=== PATIENT | male | born 1930 | race African-American/Black ===

== ENCOUNTER 2017-10-02 15:21 | Observation (INO) | payer OTHER ==
[~2017-10-02] VITALS: Ht 180.3 cm; Wt 85.0 kg
[~2017-10-02 15:21] MED LIST: ACET325T11 PO; CAPT50TA PO; CARB0.5D16 EACH EYE; COUM3TAB PO; COUM6TAB PO; DILTSR120 PO; POTA10IN2 PO; PRAV10 PO; SYNT100T PO; TAMS5CAP PO
[2017-10-02 15:37] VITALS: BP 152/74; PULSE 78; TEMP 97.6; O2SAT 98
--- NOTE | 2017-10-02 16:15 | RADRPT ---
EXAM DATE/TIME: 10/02/2017 15:51 [facility] COMPARISON: No previous studies available for comparison. INDICATIONS : Syncope 2 hours ago while eating. MEDICAL HISTORY : None. SURGICAL HISTORY : None. ENCOUNTER: Initial ACUITY: 1 day PAIN SCORE: 0/10 LOCATION: Bilateral chest FINDINGS: A single view of the chest demonstrates the lungs to be symmetrically aerated without evidence of mas s, infiltrate or effusion. The cardiomediastinal contours are unremarkable. Osseous structures are intact. CONCLUSION: No acute disease. Edis Lowry MD on October 02, 2017 at 16:13 Board Certified Radiologist. This report was verified electronically.
[2017-10-02 16:27] VITALS: BP 142/83; PULSE 83; RESP 18; TEMP 97.8; O2SAT 98
[2017-10-02] MEDS ORDERED: SODIUM CHLORID 0.9% 500 ML INJ 500 ML IV ONE (16:30)
[2017-10-02 16:34] LABS: AUTOMATED NEUTROPHIL # 3.3 TH/MM3 (1.8-7.7); BASOPHIL % 0.7 % (0.0-2.0); EOSINOPHIL # 0.1 TH/MM3 (0-0.4); EOSINOPHIL % 2.7 % (0.0-4.0); HEMATOCRIT 42.4 % (39.0-51.0); HEMOGLOBIN 14.4 GM/DL (13.0-17.0); LYMPH % 18.8 % (9.0-44.0); LYMPHOCYTE # 0.9 TH/MM3 (1.0-4.8); MEAN CELL VOLUME 92.5 FL (80.0-100.0); MEAN CORPUSCULAR HEMOGLOBIN 31.5 PG (27.0-34.0); MONO % 10.1 % (0.0-8.0); MONOCYTE # 0.5 TH/MM3 (0-0.9); NEUT % 67.7 % (16.0-70.0); PLATELET COUNT 214 TH/MM3 (150-450); RED BLOOD COUNT 4.58 MIL/MM3 (4.50-5.90); RED CELL DISTRIBUTION WIDTH 14.1 % (11.6-17.2); WHITE BLOOD COUNT 4.9 TH/MM3 (4.0-11.0)
--- NOTE | 2017-10-02 16:41 | RADRPT ---
EXAM DATE/TIME: 10/02/2017 16:23 [facility] COMPARISON: CT BRAIN W/O CONTRAST, April 19, 2013, 22:03. INDICATIONS : Became unresposive for a few minutes, family observed. RADIATION DOSE: 45.78 CTDIvol (mGy) MEDICAL HISTORY : Cardiovascular disease. Hypertension. DVT SURGICAL HISTORY : None. ENCOUNTER: Initial ACUITY: 1 day PAIN SCALE: 0/10 LOCATION: cranial TECHNIQUE: Multiple contiguous axial images were obtained of the head. Using automated exposure control and adj ustment of the mA and/or kV according to patient size, radiation dose was kept as low as reasonably a chievable to obtain optimal diagnostic quality images. DICOM format image data is available electro nically for review and comparison. FINDINGS: CEREBRUM: The ventricles are normal for age. There is bilateral cortical atrophy. 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 No evidence of midline shift, mass lesion, hemorrhage or acute infarction. N o extra-axial fluid collections are seen. POSTERIOR FOSSA: The cerebellum and brainstem are intact. The 4th ventricle is midline. The cerebellopontine angle i s unremarkable. EXTRACRANIAL: The visualized portion of the orbits is intact. SKULL: The calvaria is intact. No evidence of skull fracture. CONCLUSION: 1. No acute intracranial hemorrhage. 2. Old infarct in the right occipital lobe. 3. Diffuse bilateral cortical atrophy. 4. Otherwise, no other new or significant changes are seen compared to the prior study. Edis Lowry MD on October 02, 2017 at 16:31 Board Certified Radiologist. This report was verified electronically.
[2017-10-02 16:44] LABS: INTERNATIONAL NORMALIZED RATIO 1.2 RATIO
[2017-10-02 16:46] VITALS: BP_SYST 145; BP_SYST 156; BP_SYST 160; BP_DIAS 76; BP_DIAS 78; BP_DIAS 82; RESP 18
[2017-10-02 16:49] LABS: ALT (GPT) 22 U/L (12-78)
[2017-10-02 17:11] LABS: ALBUMIN 3.6 GM/DL (3.4-5.0); ALKALINE PHOSPHATASE 81 U/L (45-117); AST (GOT) 26 U/L (15-37); BICARBONATE 27.5 MEQ/L (21.0-32.0); BLOOD UREA NITROGEN 19 MG/DL (7-18); CALCIUM 8.6 MG/DL (8.5-10.1); CHLORIDE 106 MEQ/L (98-107); CREATININE 1.13 MG/DL (0.60-1.30); GLOMERULAR FILTRATION RATE 75 ML/MIN (>89); GLUCOSE,RANDOM 115 MG/DL (74-106); MAGNESIUM 2.3 MG/DL (1.5-2.5); SODIUM (NA) 140 MEQ/L (136-145); TOTAL BILIRUBIN ADULT 0.6 MG/DL (0.2-1.0); TOTAL PROTEIN 7.3 GM/DL (6.4-8.2); TROPONIN I 0.02 NG/ML (0.02-0.05)
--- NOTE | 2017-10-02 17:29 | PD ---
Physical Exam Narrative I, Dr. Ashraf, have reviewed the advance practice practitioner's documentation and am in agreement, met with the patient face to face, made the diagnosis, and the medical decision making was done by me. *My assessment and Findings: Arrhythmia vs. ICH vs. Vasovagal syncope 86yo M with PMH of brain aneurysm here with episode of syncope. Pt was sitting down in front of his grandson and his grandson said he slumped over and was unresponsive for 10-15 minutes. Denies any fever, chest pain, sob, n/v, abdominal pain, focal weakness or numbness. Labs reviewed, no leukocytosis. H/ H normal. TSH normal. Troponin 0.02. CMP unremarkable. CXR negative. CT brain showed no acute intracranial hemorrhage. Old infarct in the right occipital lobe. No new changes. Pt has no complaints now. Will admit for syncope work up. Data Data Last Documented VS Vital Signs Date Time Temp Pulse Resp B/P (MAP) Pulse Ox O2 Delivery O2 Flow Rate FiO2 10/02/17 16:46 84 18 145/78 (100) 79 18 156/76 (102) 89 18 160/82 (108) 10/02/17 16:28 98 Room Air 10/02/17 16:27 97.8 Orders Orders Electrocardiogram (10/02/17 15:44) Complete Blood Count With Diff (10/02/17 15:44) Comprehensive Metabolic Panel (10/02/17 15:44) Ckmb (Isoenzyme) Profile (10/02/17 15:44) Troponin I (10/02/17 15:44) Prothrombin Time / Inr (Pt) (10/02/17 15:44) Act Partial Throm Time (Ptt) (10/02/17 15:44) Urinalysis - C+S If Indicated (10/02/17 15:44) Magnesium (Mg) (10/02/17 15:44) Thyroid Stimulating Hormone (10/02/17 15:44) Chest, Single Ap (10/02/17 15:44) Ct Brain W/O Iv Contrast(Rout) (10/02/17 15:44) Iv Access Insert/Monitor (10/02/17 15:44) Ecg Monitoring (10/02/17 15:44) Oximetry (10/02/17 15:44) Orthostatic Vital Signs (10/02/17 15:44) Sodium Chlorid 0.9% 500 Ml Inj (Ns 500 M (10/02/17 16:30) CKMB (10/02/17 16:19) CKMB% (10/02/17 16:19) Labs Laboratory Tests Test 10/02/17 16:19 White Blood Count 4.9 TH/MM3 Red Blood Count 4.58 MIL/MM3 Hemoglobin 14.4 GM/DL Hematocrit 42.4 % Mean Corpuscular Volume 92.5 FL Mean Corpuscular Hemoglobin 31.5 PG Mean Corpuscular Hemoglobin Concent 34.0 % Red Cell Distribution Width 14.1 % Platelet Count 214 TH/MM3 Mean Platelet Volume 8.0 FL Neutrophils (%) (Auto) 67.7 % Lymphocytes (%) (Auto) 18.8 % Monocytes (%) (Auto) 10.1 % Eosinophils (%) (Auto) 2.7 % Basophils (%) (Auto) 0.7 % Neutrophils # (Auto) 3.3 TH/MM3 Lymphocytes # (Auto) 0.9 TH/MM3 Monocytes # (Auto) 0.5 TH/MM3 Eosinophils # (Auto) 0.1 TH/MM3 Basophils # (Auto) 0.0 TH/MM3 CBC Comment DIFF FINAL Differential Comment Prothrombin Time 12.0 SEC Prothromb Time International Ratio 1.2 RATIO Activated Partial Thromboplast Time 25.6 SEC Blood Urea Nitrogen 19 MG/DL Creatinine 1.13 MG/DL Random Glucose 115 MG/DL Total Protein 7.3 GM/DL Albumin 3.6 GM/DL Calcium Level 8.6 MG/DL Magnesium Level 2.3 MG/DL Alkaline Phosphatase 81 U/L Aspartate Amino Transf (AST/SGOT) 26 U/L Alanine Aminotransferase (ALT/SGPT) 22 U/L Total Bilirubin 0.6 MG/DL Sodium Level 140 MEQ/L Potassium Level 4.9 MEQ/L Chloride Level 106 MEQ/L Carbon Dioxide Level 27.5 MEQ/L Anion Gap 7 MEQ/L Estimat Glomerular Filtration Rate 75 ML/MIN Total Creatine Kinase 140 U/L Creatine Kinase MB 3.3 NG/ML Troponin I 0.02 NG/ML Thyroid Stimulating Hormone 3rd Gen 3.180 uIU/ML MDM Supervised Visit with RAFAL: Yes Interpretation(s) EKG: NSR 83bpm. Normal axis. QTc 404ms. Diagnosis Primary Impression: Syncope Qualified Codes: R55 - Syncope and collapse Admitting Information Admitting Physician Requests: Observation Nishi Ashraf DO Oct 02, 2017 17:29
[2017-10-02] MEDS ORDERED: WARF-60 PO (17:31)
[2017-10-02] MEDS ORDERED: CARD120C4 PO (17:31)
[2017-10-02] MEDS ORDERED: TAMS0.4C4 PO ×2 (17:31→20:09)
[2017-10-02] MEDS ORDERED: PRAV10TA PO (17:31)
[2017-10-02] MEDS ORDERED: TYLE325T PO ×2 (17:31→20:09)
[2017-10-02] MEDS ORDERED: CAPT50TA PO (17:31)
[2017-10-02] MEDS ORDERED: LEVO150T7 PO (17:31)
[2017-10-02] MEDS ORDERED: POTA10CA PO (17:31)
[2017-10-02] MEDS ORDERED: SODIUM CHLOR 0.9% 1000 ML INJ 1,000 ML IV SCH (17:37)
[2017-10-02] MEDS ORDERED: LACTULOSE SYRUP 20 GM/30 ML CUP PO PRN (17:45)
[2017-10-02] MEDS ORDERED: ONDANSETRON HCL 4 MG/2 ML VIAL IVP PRN (17:45)
[2017-10-02] MEDS ORDERED: ACETAMINOPHEN 325 MG TAB PO PRN ×2 (17:45)
[2017-10-02] MEDS ORDERED: SENNOSIDES 8.6 MG TAB PO PRN (17:45)
[2017-10-02] MEDS ORDERED: MAGNESIUM HYDROXIDE SUSP 30 ML CUP PO PRN (17:45)
[2017-10-02] MEDS ORDERED: BISACODYL 10 MG SUPP RECTAL PRN (17:45)
[2017-10-02] MEDS ORDERED: SODIUM CHLORIDE 0.9% FLUSH 10 ML FLUSH IV FLUSH PRN ×2 (17:45)
[2017-10-02] MEDS ORDERED: NALOXONE HCL 0.4 MG/ML AMP IV PUSH PRN (17:45)
--- NOTE | 2017-10-02 17:54 | PD ---
HPI Chief Complaint: Syncope/Near-Syncope Time Seen by Provider: 15:39 Travel History International Travel<30 days: No Contact w/Intl Traveler<30days: No Traveled to known affect area: No History of Present Illness HPI 86-year-old male that presents to the ED for evaluation of syncopal episode. Patient has a history of apparently eating early dinner today with his family and per family he passed out for about 10-15 minutes. Unsure of time but by the time the EVAC showed and the patient was moved and he was found to be hypotensive but "he came back to it". Patient now voices no complaints. He denies any preleading symptoms. Per family he did not complain of anything before this happened. No CPR was done. Patient himself denies any medical history and states that he takes medications but he is not sure what he takes. Patient is somewhat of a poor historian. Patient denies any chest pain or shortness of breath. No urinary or bowel movement issues. Patient denies ever having anything like this before. Patient states that she's never been worked up for this before. He has no allergies to medication. Patient has no pain of any kind. No fevers chills or sweats. Patient was sitting when this happened. Per family no head injury. PFSH Past Medical History Cancer: No Cardiovascular Problems: Yes High Cholesterol: Yes Deep Vein Thrombosis: Yes Endocrine: Yes Genitourinary: No Hypertension: Yes Musculoskeletal: No Neurologic: Yes (HX OF CVA? PT UNSURE OF DIAGNOSIS/ brain anuersym in 2015, no surgery) Psychiatric: No Reproductive: No Respiratory: No Thyroid Disease: Yes ?: Not Past Surgical History Other Surgery: No Social History Alcohol Use: No Tobacco Use: No Substance Use: No Allergies-Medications (Allergen,Severity, Reaction): Coded Allergies: No Known Allergies (Unverified Allergy, Unknown, 10/02/17) Reported Meds & Prescriptions Reported Meds & Active Scripts Active Reported Tylenol (Acetaminophen) 325 Mg Tab 650 Mg PO Q6H PRN Warfarin 6 Mg Tab 6 Mg PO DAILY Tamsulosin (Tamsulosin HCl) 0.4 Mg Cap 0.4 Mg PO HS Pravastatin 10 Mg Tab 10 Mg PO DAILY Potassium Chloride ER (Potassium Chloride) 10 Meq Cap 10 Meq PO BID Levothyroxine (Levothyroxine Sodium) 150 Mcg Tab 150 Mcg PO DAILY Cardizem CD 24 HR (Diltiazem CD 24 HR) 120 Mg Caper 120 Mg PO DAILY Captopril 50 Mg Tab 50 Mg PO BIDAC Take 1 hour before meals. Review of Systems Except as stated in HPI: all other systems reviewed are Neg Physical Exam Narrative GENERAL: SKIN: Warm and dry. Patient has a scar on his chest that appears to be old and well-healed. His ordered some told the chest. Patient cannot really tell me how he got this but per patient she's had that his whole life HEAD: Atraumatic. Normocephalic. EYES: Pupils equal and round. No scleral icterus. No injection or drainage. ENT: No nasal bleeding or discharge. Mucous membranes pink and moist. Tongue is midline. No uvula deviation. NECK: Trachea midline. No JVD. CARDIOVASCULAR: Regular rate and rhythm. He reports no murmurs, S3, S4. RESPIRATORY: No accessory muscle use. Clear to auscultation. Breath sounds equal bilaterally. GASTROINTESTINAL: Abdomen soft, non-tender, nondistended. Hepatic and splenic margins not palpable. MUSCULOSKELETAL: Extremities without clubbing, cyanosis, or edema. No obvious deformities. Full range of motion of the upper and lower extremities bilaterally. 2+ pulses bilaterally. NEUROLOGICAL: Awake and alert. No obvious cranial nerve deficits. Motor grossly within normal limits. Five out of 5 muscle strength in the arms and legs. Normal speech. PSYCHIATRIC: Appropriate mood and affect; insight and judgment normal. Data Data Last Documented VS Vital Signs Date Time Temp Pulse Resp B/P (MAP) Pulse Ox O2 Delivery O2 Flow Rate FiO2 10/02/17 16:46 84 18 145/78 (100) 79 18 156/76 (102) 89 18 160/82 (108) 10/02/17 16:28 98 Room Air 10/02/17 16:27 97.8 Orders Orders Electrocardiogram (10/02/17 15:44) Complete Blood Count With Diff (10/02/17 15:44) Comprehensive Metabolic Panel (10/02/17 15:44) Ckmb (Isoenzyme) Profile (10/02/17 15:44) Troponin I (10/02/17 15:44) Prothrombin Time / Inr (Pt) (10/02/17 15:44) Act Partial Throm Time (Ptt) (10/02/17 15:44) Urinalysis - C+S If Indicated (10/02/17 15:44) Magnesium (Mg) (10/02/17 15:44) Thyroid Stimulating Hormone (10/02/17 15:44) Chest, Single Ap (10/02/17 15:44) Ct Brain W/O Iv Contrast(Rout) (10/02/17 15:44) Iv Access Insert/Monitor (10/02/17 15:44) Ecg Monitoring (10/02/17 15:44) Oximetry (10/02/17 15:44) Orthostatic Vital Signs (10/02/17 15:44) Sodium Chlorid 0.9% 500 Ml Inj (Ns 500 M (10/02/17 16:30) CKMB (10/02/17 16:19) CKMB% (10/02/17 16:19) Place In Observation (10/02/17 ) Vital Signs (Adult) Q4H (10/02/17 17:35) Bedside Glucose MELANIE.CSUGAR (10/02/17 17:35) Diet Heart Healthy (10/02/17 Dinner) Sodium Chlor 0.9% 1000 Ml Inj (Ns 1000 M (10/02/17 17:35) Sodium Chloride 0.9% Flush (Ns Flush) (10/02/17 17:45) Sodium Chloride 0.9% Flush (Ns Flush) (10/02/17 21:00) Acetaminophen (Tylenol) (10/02/17 17:45) Ondansetron Inj (Zofran Inj) (10/02/17 17:45) Basic Metabolic Panel (Bmp) (10/03/17 06:00) Complete Blood Count With Diff (10/03/17 06:00) Electrocardiogram (10/02/17 17:35) Electrocardiogram (10/02/17 23:35) Resp Oxygen Nelson C Titrat 1-4 L (10/02/17 ) Pt Request For Service (10/02/17 17:35) Case Management Consult (10/02/17 17:35) Enoxaparin Inj (Lovenox Inj) (10/02/17 18:00) Scd Bilateral/Knee High MELANIE.BID (10/02/17 17:35) Axel Bilateral/Knee High MELANIE.QSHIFT (10/02/17 17:35) Naloxone Inj (Narcan Inj) (10/02/17 17:45) Docusate Sodium-Senna (Kellee-Colace) (10/02/17 21:00) Magnesium Hydroxide Liq (Milk Of Magnesi (10/02/17 17:45) Sennosides (Senokot) (10/02/17 17:45) Bisacodyl Supp (Dulcolax Supp) (10/02/17 17:45) Lactulose Liq (Lactulose Liq) (10/02/17 17:45) Offline Cutter / Telemetry MELANIE.Q8H (10/02/17 17:37) Neuro Checks Q4H (10/02/17 17:37) Sodium Chlor 0.9% 1000 Ml Inj (Ns 1000 M (10/02/17 17:37) Sodium Chloride 0.9% Flush (Ns Flush) (10/02/17 17:45) Sodium Chloride 0.9% Flush (Ns Flush) (10/02/17 21:00) Echo 2d Comp With Doppler (10/02/17 ) Holter Monitor Recording (10/02/17 ) Eeg Study (10/02/17 ) Acetaminophen (Tylenol) (10/02/17 17:45) Captopril (Capoten) (10/03/17 07:00) Diltiazem Cd (Cardizem Cd) (10/03/17 09:00) Levothyroxine (Synthroid) (10/03/17 09:00) Potassium Chloride (Kcl) (10/02/17 21:00) Pravastatin (Pravachol) (10/03/17 09:00) Tamsulosin (Flomax) (10/02/17 21:00) Warfarin (Coumadin) (10/03/17 16:00) Prothrombin Time / Inr (Pt) (10/03/17 06:00) Prothrombin Time / Inr (Pt) (10/04/17 06:00) Prothrombin Time / Inr (Pt) (10/05/17 06:00) Prothrombin Time / Inr (Pt) (10/06/17 06:00) Prothrombin Time / Inr (Pt) (10/07/17 06:00) Warfarin Consult Pharmacy (Coumadin Cons (10/02/17 17:45) Enoxaparin Inj (Lovenox Inj) (10/02/17 17:45) Admit Order (Ed Use Only) (10/02/17 17:45) Warfarin (Coumadin) Pt Teach (Coumadin B (10/03/17 16:00) Labs Laboratory Tests Test 10/02/17 16:19 10/02/17 17:25 White Blood Count 4.9 TH/MM3 Red Blood Count 4.58 MIL/MM3 Hemoglobin 14.4 GM/DL Hematocrit 42.4 % Mean Corpuscular Volume 92.5 FL Mean Corpuscular Hemoglobin 31.5 PG Mean Corpuscular Hemoglobin Concent 34.0 % Red Cell Distribution Width 14.1 % Platelet Count 214 TH/MM3 Mean Platelet Volume 8.0 FL Neutrophils (%) (Auto) 67.7 % Lymphocytes (%) (Auto) 18.8 % Monocytes (%) (Auto) 10.1 % Eosinophils (%) (Auto) 2.7 % Basophils (%) (Auto) 0.7 % Neutrophils # (Auto) 3.3 TH/MM3 Lymphocytes # (Auto) 0.9 TH/MM3 Monocytes # (Auto) 0.5 TH/MM3 Eosinophils # (Auto) 0.1 TH/MM3 Basophils # (Auto) 0.0 TH/MM3 CBC Comment DIFF FINAL Differential Comment Prothrombin Time 12.0 SEC Prothromb Time International Ratio 1.2 RATIO Activated Partial Thromboplast Time 25.6 SEC Blood Urea Nitrogen 19 MG/DL Creatinine 1.13 MG/DL Random Glucose 115 MG/DL Total Protein 7.3 GM/DL Albumin 3.6 GM/DL Calcium Level 8.6 MG/DL Magnesium Level 2.3 MG/DL Alkaline Phosphatase 81 U/L Aspartate Amino Transf (AST/SGOT) 26 U/L Alanine Aminotransferase (ALT/SGPT) 22 U/L Total Bilirubin 0.6 MG/DL Sodium Level 140 MEQ/L Potassium Level 4.9 MEQ/L Chloride Level 106 MEQ/L Carbon Dioxide Level 27.5 MEQ/L Anion Gap 7 MEQ/L Estimat Glomerular Filtration Rate 75 ML/MIN Total Creatine Kinase 140 U/L Creatine Kinase MB 3.3 NG/ML Troponin I 0.02 NG/ML Thyroid Stimulating Hormone 3rd Gen 3.180 uIU/ML MDM Medical Decision Making Medical Screen Exam Complete: Yes Emergency Medical Condition: Yes Medical Record Reviewed: Yes Interpretation(s) Last Impressions Head CT 10/02/17 4560 Signed Impressions: Service Date/Time: Monday, October 02, 2017 16:23 - CONCLUSION: 1. No acute intracranial hemorrhage. 2. Old infarct in the right occipital lobe. 3. Diffuse bilateral cortical atrophy. 4. Otherwise, no other new or significant changes are seen compared to the prior study. Edis Lowry MD Chest X-Ray 10/02/17 1544 Signed Impressions: Service Date/Time: Monday, October 02, 2017 15:51 - CONCLUSION: No acute disease. Edis Lowry MD CBC & BMP Diagram 10/02/17 16:19 Total Protein 7.3, Albumin 3.6, Calcium Level 8.6, Magnesium Level 2.3, Alkaline Phosphatase 81, Aspartate Amino Transf (AST/SGOT) 26, Alanine Aminotransferase (ALT/SGPT) 22, Total Bilirubin 0.6 coags WNL troponin and CKMB negative EKG shows sinus rhythm with no sign of acute ischemia or arrythmia. Differential Diagnosis Syncope versus altered mental status versus cardiac syncope versus ACS versus stroke versus hypotension versus normal exam Narrative Course 86-year-old male that presents to the ED for evaluation of syncope. Patient was properly examined and was found to have signs and symptoms consistent with syncope but unclear source. Patient himself right now has no complaints. Patient himself is somewhat of a poor historian. He does have a history of DVTs as well as high cholesterol hypertension from her medical records. Unclear if he takes medications for this as he himself does not know what medications he takes. Labs and imaging were ordered. Labs and imaging were essentially unremarkable here. Patient has never been worked up for this in the past and has never been here for this. Do recommend evaluation for this. Family and patient agree with this. Dr. Ashraf evaluated the patient with me and agrees with plan. Case discussed with Dr. Redmond who agreed to admission for syncope. Diagnosis Primary Impression: Syncope Qualified Codes: R55 - Syncope and collapse Admitting Information Admitting Physician Requests: Rogelio Machuca Oct 02, 2017 17:54
[2017-10-02 17:57] LABS: BILIRUBIN, URINE NEG (NEG); BLOOD, URINE NEG (NEG); GLUCOSE,URINE NEG (NEG); HYALINE CAST, URINE 13 /lpf (RARE); KETONE, URINE NEG (NEG); MUCUS URINE FEW /lpf (OCC); NITRITE,URINE NEG (NEG); SQUAMOUS EPITHELIAL CELL URINE <1 /hpf (0-5); URINE COLOR YELLOW (YELLW/STRAW); URINE LEUKOCYTE ESTERASE NEG (NEG)
[2017-10-02] MEDS ORDERED: ENOXAPARIN SODIUM 40 MG/0.4 ML SYRINGE SQ SCH (18:00)
[2017-10-02] MEDS ORDERED: WARFARIN SOD 6 MG TAB PO ONE (18:30)
--- NOTE | 2017-10-02 19:10 | HHI.HP ---
[facility] Service [facility] Primary Care Physician Chelsie Newell MD Admission Diagnosis acute syncope Diagnoses: Chief Complaint: Syncope Travel History International Travel<30 Days: No Contact w/Intl Traveler <30 Da: No Traveled to Known Affected Are: No History of Present Illness The patient is a very pleasant 86-year-old male with past medical history of CVA with right-sided weakness, brain aneurysm, DVT, hypertension. The patient came for evaluation of episode of syncope witnessed today by his family. The patient was sitting down in front of his grandson at the table when he suddenly slumped over and was unresponsive for 10-15 minutes. He had his eyes open and staring. Patient doesn't have a recollection of what happened and by the time he came to the emergency room his baseline. Her family the patient has slurred speech afterwards. The patient denies any fever, chest pain, shortness of breath, nausea or vomiting. No abdominal pain. No new focal deficit or numbness. No change in vision. He has right-sided weakness at baseline. The patient as family says he is not taking anymore Coumadin however he was switched to paradox and currently he is not sure what medication he is taking for anticoagulation however he is sure he is not taking Coumadin anymore. Review of Systems ROS Limitations: Clinical Condition Except as stated in HPI: all other systems reviewed are Neg Past Family Social History Past Medical History CVA with right-sided weakness, brain aneurysm, hypertension Past Surgical History Patient denies any surgeries in the past Reported Medications Last Impressions Head CT 10/02/171543 Signed Impressions: Service Date/Time: Monday, October 02, 2017 16:23 - CONCLUSION: 1. No acute intracranial hemorrhage. 2. Old infarct in the right occipital lobe. 3. Diffuse bilateral cortical atrophy. 4. Otherwise, no other new or significant changes are seen compared to the prior study. Edis Lowry MD Chest X-Ray 10/02/17 1457 Signed Impressions: Service Date/Time: Monday, October 02, 2017 15:51 - CONCLUSION: No acute disease. Edis Lowry MD Allergies: Coded Allergies: No Known Allergies (Unverified Allergy, Unknown, 10/02/17) Family History 2 sisters with history of cancer, unspecified Social History Denies alcohol use illicit drug use or tobacco use Quit tobacco use more than 40 years ago Physical Exam Vital Signs Vital Signs Date Time Temp Pulse Resp B/P (MAP) Pulse Ox O2 Delivery O2 Flow Rate FiO2 10/02/17 16:46 84 18 145/78 (100) 79 18 156/76 (102) 89 18 160/82 (108) 10/02/17 16:28 82 18 98 Room Air 10/02/17 16:27 97.8 83 18 142/83 (102) 98 Room Air 10/02/17 15:37 97.6 78 152/74 (100) 98 Physical Exam GENERAL: This is a very pleasant 86-year-old male well- nourished, well-developed patient, in no apparent distress. SKIN: No rashes, ecchymoses or lesions. Cool and dry. HEAD: Atraumatic. Normocephalic. No temporal or scalp tenderness. EYES: Pupils equal round and reactive. Extraocular motions intact. No scleral icterus. No injection or drainage. ENT: Nose without bleeding, purulent drainage or septal hematoma. Throat without erythema, tonsillar hypertrophy or exudate. Uvula midline. Airway patent. NECK: Trachea midline. No JVD or lymphadenopathy. Supple, nontender, no meningeal signs. CARDIOVASCULAR: Regular rate and rhythm without murmurs, gallops, or rubs. RESPIRATORY: Clear to auscultation. Breath sounds equal bilaterally. No wheezes , rales, or rhonchi. GASTROINTESTINAL: Abdomen soft, non-tender, nondistended. No hepato-splenomegaly , or palpable masses. No guarding. MUSCULOSKELETAL: Extremities without clubbing, cyanosis, or edema. No joint tenderness, effusion, or edema noted. No calf tenderness. Negative Homans sign bilaterally. NEUROLOGICAL: Awake and alert. Cranial nerves II through XII intact. Motor and sensory grossly at baseline, slight weakness right arm and right leg. Normal speech. Laboratory Laboratory Tests Test 10/02/17 16:19 10/02/17 17:25 White Blood Count 4.9 Red Blood Count 4.58 Hemoglobin 14.4 Hematocrit 42.4 Mean Corpuscular Volume 92.5 Mean Corpuscular Hemoglobin 31.5 Mean Corpuscular Hemoglobin Concent 34.0 Red Cell Distribution Width 14.1 Platelet Count 214 Mean Platelet Volume 8.0 Neutrophils (%) (Auto) 67.7 Lymphocytes (%) (Auto) 18.8 Monocytes (%) (Auto) 10.1 Eosinophils (%) (Auto) 2.7 Basophils (%) (Auto) 0.7 Neutrophils # (Auto) 3.3 Lymphocytes # (Auto) 0.9 Monocytes # (Auto) 0.5 Eosinophils # (Auto) 0.1 Basophils # (Auto) 0.0 CBC Comment DIFF FINAL Differential Comment Prothrombin Time 12.0 Prothromb Time International Ratio 1.2 Activated Partial Thromboplast Time 25.6 Blood Urea Nitrogen 19 Creatinine 1.13 Random Glucose 115 Total Protein 7.3 Albumin 3.6 Calcium Level 8.6 Magnesium Level 2.3 Alkaline Phosphatase 81 Aspartate Amino Transf (AST/SGOT) 26 Alanine Aminotransferase (ALT/SGPT) 22 Total Bilirubin 0.6 Sodium Level 140 Potassium Level 4.9 Chloride Level 106 Carbon Dioxide Level 27.5 Anion Gap 7 Estimat Glomerular Filtration Rate 75 Total Creatine Kinase 140 Creatine Kinase MB 3.3 Troponin I 0.02 Thyroid Stimulating Hormone 3rd Gen 3.180 Urine Color YELLOW Urine Turbidity CLEAR Urine pH 7.0 Urine Specific Egan 1.020 Urine Protein 30 Urine Glucose (UA) NEG Urine Ketones NEG Urine Occult Blood NEG Urine Nitrite NEG Urine Bilirubin NEG Urine Urobilinogen LESS THAN 2.0 Urine Leukocyte Esterase NEG Urine RBC 2 Urine WBC 2 Urine Squamous Epithelial Cells <1 Urine Hyaline Casts 13 Urine Mucus FEW Microscopic Urinalysis Comment CULT NOT INDICATED Result Diagram: 10/02/17 1619 10/02/17 1619 Imaging Last Impressions Head CT 10/02/17 154 Signed Impressions: Service Date/Time: Monday, October 02, 2017 16:23 - CONCLUSION: 1. No acute intracranial hemorrhage. 2. Old infarct in the right occipital lobe. 3. Diffuse bilateral cortical atrophy. 4. Otherwise, no other new or significant changes are seen compared to the prior study. Edis Lowry MD Chest X-Ray 10/02/17 1544 Signed Impressions: Service Date/Time: Monday, October 02, 2017 15:51 - CONCLUSION: No acute disease. Edis J. Siragusa, MD Caprini VTE Risk Assessment Caprini VTE Risk Assessment: Mod/High Risk (score >= 2) Caprini Risk Assessment Model Point Value = 1 Point Value = 2 Point Value = 3 Point Value = 5 Age 41-60 Minor surgery BMI > 25 kg/m2 Swollen legs Varicose veins or History of unexplained or recurrent spontaneous Oral contraceptives or hormone replacement Sepsis (< 1 month) Serious lung disease, including pneumonia (< 1 month) Abnormal pulmonary function Acute myocardial infarction Congestive heart failure (< 1 month) History of inflammatory bowel disease Medical patient at bed rest Age 61-74 Arthroscopic surgery Major open surgery (> 45 min) Laparoscopic surgery (> 45 min) Malignancy Confined to bed (> 72 hours) Immobilizing plaster cast Central venous access Age >= 75 History of VTE Family history of VTE Factor V Leiden Prothrombin [id number] Lupus anticoagulant Anticardiolipin antibodies Elevated serum homocysteine Heparin-induced thrombocytopenia Other congenital or acquired thrombophilia Stroke (< 1 month) Elective arthroplasty Hip, pelvis, or leg fracture Acute spinal cord injury (< 1 month) Prophylaxis Regimen Total Risk Factor Score Risk Level Prophylaxis Regimen 0-1 Low Early ambulation 2 Moderate Order ONE of the following: *Sequential Compression Device (SCD) *Heparin 5000 units SQ BID 3-4 Higher Order ONE of the following medications: *Heparin 5000 units SQ TID *Enoxaparin/Lovenox 40 mg SQ daily (WT < 150 kg, CrCl > 30 mL/min) *Enoxaparin/Lovenox 30 mg SQ daily (WT < 150 kg, CrCl > 10-29 mL/min) *Enoxaparin/Lovenox 30 mg SQ BID (WT < 150 kg, CrCl > 30 mL/min) AND/OR *Sequential Compression Device (SCD) 5 or more Highest Order ONE of the following medications: *Heparin 5000 units SQ TID (Preferred with Epidurals) *Enoxaparin/Lovenox 40 mg SQ daily (WT < 150 kg, CrCl > 30 mL/min) *Enoxaparin/Lovenox 30 mg SQ daily (WT < 150 kg, CrCl > 10-29 mL/min) *Enoxaparin/Lovenox 30 mg SQ BID (WT < 150 kg, CrCl > 30 mL/min) AND *Sequential Compression Device (SCD) Assessment and Plan Assessment and Plan The patient is a very pleasant 86-year-old male with past medical history of CVA with right-sided weakness, brain aneurysm, DVT, hypertension who came for evaluation of episode of syncope Syncope History of CVA with right-sided weakness History of brain aneurysm History of DVT Hypertension CT brain reviewed and discussed with the ED staff showed no acute intracranial hemorrhage and old infarct in the right occipital lobe. Chest x-ray reviewed and normal EKG reviewed normal sinus rhythm, 80 3/5 per minute. Normal axis. QTC 404 ms. No changes on EKG TSH normal Troponin normal 0.02 Ordered 2-D echo, carotid ultrasound, EEG Monitor on telemetry Holter monitor Restart home medications. Adjust blood pressure medications if needed Patient is no longer on Coumadin per patient and family. However they're not sure what anticoagulation he is on. GHas ASA allergy. Son will bring meds from home, resume medications from home. We'll start Lovenox 80 mg IV twice a day for now. INR is 1.2 Consult neurology DVT prophylaxis SCD/teds/Lovenox Discussed Condition With Patient, family at bedside, nurse, ED physician Dr. Vivas Physician Certification 2 Midnight Certification Type: Admission for Inpatient Services Order for Inpatient Services The services are ordered in accordance with Medicare regulations or non- Medicare payer requirements, as applicable. In the case of services not specified as inpatient-only, they are appropriately provided as inpatient services in accordance with the 2-midnight benchmark. Estimated LOS (days): 3 days is the estimated time the patient will need to remain in the hospital, assuming treatment plan goals are met and no additional complications. Post-Hospital Plan: Home Omayra Redmond MD Oct 02, 2017 19:10
[2017-10-02 19:30] VITALS: O2SAT 98
[2017-10-02] MEDS ORDERED: DILT120C9 PO (20:09)
[2017-10-02] MEDS ORDERED: LISI-515 PO (20:09)
[2017-10-02] MEDS ORDERED: REFRDRO EACH EYE (20:09)
[2017-10-02] MEDS ORDERED: PRAV20TA2 PO (20:09)
[2017-10-02] MEDS ORDERED: CENTCHW3 (20:09)
[2017-10-02] MEDS ORDERED: APIX5TAB PO (20:09)
[2017-10-02] MEDS ORDERED: BACL10TA PO (20:09)
[2017-10-02] MEDS ORDERED: SODIUM CHLORIDE 0.9% FLUSH 10 ML FLUSH IV FLUSH SCH (21:00)
[2017-10-02] MEDS: DOCUSATE SODIUM 50 MG/SENNA 8.6 MG TAB PO SCH (21:32)
[2017-10-02] MEDS: TAMSULOSIN HCL 0.4 MG CAP PO SCH (21:32)
[2017-10-02] MEDS: POTASSIUM CHLORIDE 10 MEQ CAP PO SCH (21:32)
[2017-10-02] MEDS: ENOXAPARIN SODIUM 80 MG/0.8 ML SYRINGE SQ SCH (21:33)
[2017-10-02] MEDS: SODIUM CHLOR 0.9% 1000 ML INJ 1,000 ML IV SCH (21:35)
[2017-10-02] MEDS: SODIUM CHLORIDE 0.9% FLUSH 10 ML FLUSH IV FLUSH SCH (21:35)
[2017-10-02 21:49] VITALS: BP 133/76; PULSE 72; RESP 18; TEMP 98.1; O2SAT 93
[2017-10-03] VITALS (9 sets, daily range): BP systolic 127–147; BP diastolic 60–70; PULSE 65–78; RESP 18; TEMP 97.9–98.2; O2SAT 95–100
[2017-10-03] MEDS: CAPTOPRIL 50 MG TAB PO SCH ×2 (06:53→17:05)
[2017-10-03] MEDS: ENOXAPARIN SODIUM 80 MG/0.8 ML SYRINGE SQ SCH ×2 (06:53→17:54)
[2017-10-03] MEDS: SODIUM CHLOR 0.9% 1000 ML INJ 1,000 ML IV SCH ×2 (06:53→13:35)
[2017-10-03 08:31] LABS: AUTOMATED NEUTROPHIL # 2.3 TH/MM3 (1.8-7.7); EOSINOPHIL # 0.1 TH/MM3 (0-0.4); EOSINOPHIL % 2.4 % (0.0-4.0); HEMATOCRIT 37.9 % (39.0-51.0); HEMOGLOBIN 12.9 GM/DL (13.0-17.0); LYMPH % 28.3 % (9.0-44.0); LYMPHOCYTE # 1.1 TH/MM3 (1.0-4.8); MEAN CELL VOLUME 92.2 FL (80.0-100.0); MEAN CORPUSCULAR HEMOGLOBIN 31.5 PG (27.0-34.0); MEAN CORPUSCULAR HGB CONC 34.1 % (32.0-36.0); MEAN PLATELET VOLUME 7.9 FL (7.0-11.0); MONO % 11.1 % (0.0-8.0); MONOCYTE # 0.4 TH/MM3 (0-0.9); NEUT % 57.2 % (16.0-70.0); PLATELET COUNT 183 TH/MM3 (150-450); RED BLOOD COUNT 4.11 MIL/MM3 (4.50-5.90); RED CELL DISTRIBUTION WIDTH 13.8 % (11.6-17.2)
[2017-10-03 08:34] LABS: INTERNATIONAL NORMALIZED RATIO 1.2 RATIO; PROTHROMBIN TIME - PATIENT 12.2 SEC (9.8-11.6)
[2017-10-03 08:54] LABS: BICARBONATE 25.6 MEQ/L (21.0-32.0); CALCIUM 8.6 MG/DL (8.5-10.1); CREATININE 0.94 MG/DL (0.60-1.30)
[2017-10-03] MEDS: SODIUM CHLORIDE 0.9% FLUSH 10 ML FLUSH IV FLUSH SCH ×2 (09:00→21:42)
[2017-10-03] MEDS: POTASSIUM CHLORIDE 10 MEQ CAP PO SCH ×2 (09:09→21:43)
[2017-10-03] MEDS: DILTIAZEM-CD 120 MG CAP ER PO SCH (09:09)
[2017-10-03] MEDS: PRAVASTATIN SOD 10 MG TAB PO SCH (09:10)
[2017-10-03] MEDS: LEVOTHYROXINE SODIUM 150 MCG TAB PO SCH (09:10)
[2017-10-03] MEDS: DOCUSATE SODIUM 50 MG/SENNA 8.6 MG TAB PO SCH ×2 (09:10→21:43)
--- NOTE | 2017-10-03 11:01 | HHI.PR ---
Subjective Remarks Follow-up syncope. Patient states he had dizziness prior to passing out. At this time he has no complaints. No new medicines. Confirms he is on Coumadin. Discussed with RN Objective Vitals Vital Signs Date Time Temp Pulse Resp B/P (MAP) Pulse Ox O2 Delivery O2 Flow Rate FiO2 10/03/17 08:37 97.9 68 140/60 (86) 95 10/03/17 04:15 65 10/03/17 04:00 98.0 78 18 147/68 (94) 98 10/03/17 00:25 73 10/02/17 21:49 98.1 72 18 133/76 (95) 93 10/02/17 19:30 98 Nasal Cannula 2.00 10/02/17 19:10 10/02/17 16:46 84 18 145/78 (100) 79 18 156/76 (102) 89 18 160/82 (108) 10/02/17 16:28 82 18 98 Room Air 10/02/17 16:27 97.8 83 18 142/83 (102) 98 Room Air 10/02/17 15:37 97.6 78 152/74 (100) 98 I/O 10/02/17 10/02/17 10/02/17 10/03/17 10/03/17 10/03/17 07:00 15:00 23:00 07:00 15:00 23:00 Output Total 800 ml Balance -800 ml Output Urine Total 800 ml # Bowel Movements 1 Result Diagram: 10/03/17 0803 10/03/17 0803 Imaging Last Impressions Head CT 10/02/17 1544 Signed Impressions: Service Date/Time: Monday, October 02, 2017 16:23 - CONCLUSION: 1. No acute intracranial hemorrhage. 2. Old infarct in the right occipital lobe. 3. Diffuse bilateral cortical atrophy. 4. Otherwise, no other new or significant changes are seen compared to the prior study. Edis Lowry MD Chest X-Ray 10/02/17 1544 Signed Impressions: Service Date/Time: Monday, October 02, 2017 15:51 - CONCLUSION: No acute disease. Edis Lowry MD Objective Remarks GENERAL: This is a very pleasant 86-year-old male well- nourished, well-developed patient, in no apparent distress. SKIN: No rashes, ecchymoses or lesions. Cool and dry. CARDIOVASCULAR: Irregularly irregular RESPIRATORY: Clear to auscultation. Breath sounds equal bilaterally. No wheezes , rales, or rhonchi. GASTROINTESTINAL: Abdomen soft, non-tender, nondistended. No guarding. MUSCULOSKELETAL: Extremities without clubbing, cyanosis, or edema. No joint tenderness, effusion, or edema noted. No calf tenderness. Negative Homans sign bilaterally. NEUROLOGICAL: Awake and alert. Cranial nerves II through XII intact. Motor and sensory grossly at baseline, slight weakness right arm and right leg. Normal speech. Procedures none A/P Problem List: (1) Syncope ICD Code: R55 - Syncope and collapse Status: Acute Assessment and Plan The patient is a very pleasant 86-year-old male with past medical history of CVA with right-sided weakness, brain aneurysm, DVT, hypertension who came for evaluation of episode of syncope Syncope with history of CVA with right-sided weakness, A. fib and brain aneurysm. Differential diagnosis vasovagal (EMS documented blood pressure 74/ 44 but no orthostatic here) versus CVA/TIA. Stroke workup negative so far. Obtain 2-D echo, brain MRI and monitor telemetry. Check B-12 CVA with right-sided weakness with A. fib. Continue anticoagulation with Coumadin keep INR between 2 and 3 Bridge with Lovenox History of brain aneurysm. History of DVT Hypertension. Continue outpatient medications as appropriate. DVT prophylaxis SCD/teds/Lovenox and Coumadin Discharge Planning Possible discharge in the morning Problem Qualifiers (1) Syncope: Qualified Codes: R55 - Syncope and collapse Chad Mendez MD Oct 03, 2017 11:01
--- NOTE | 2017-10-03 11:44 | MB ---
cc: MICHAEL CHATMAN M.D. DATE OF CONSULTATION: 10/03/2017. REASON FOR CONSULTATION: This is an 86-year-old seen in neurological consultation in regards to a prolonged syncopal episode. HISTORY OF PRESENT ILLNESS: He is unable to give me details. Reportedly he was brought to the hospital after a 10 - 15 minute syncope with some staring. No apparent seizure activity. He lives at home with family. He was confused during the night and when I saw him this morning, he was alert, pleasant and had urinated on himself and on the floor in spite of him having diapers. His speech is rambling, and at times difficult to be comprehended. He is oriented to his age but was confused as to place. When I told him he was in the hospital he seemed to realize that. He followed simple commands and was sitting in bed and had difficulty standing up. His ocular movements were full. Visual ivan appear to be full although there is a description of an old right occipital infarct. His reflexes were trace responsive and I did not ambulate him. The INR is 1.2. CT brain as discussed above. EKG shows atrial fibrillation. ASSESSMENT: Apparent prolonged syncopal episode. Atrial fibrillation and he may have been on anticoagulation the past but currently uncertain if he is on anticoagulation. CT showing old right occipital and some atrophy, study reviewed. He was started on Lovenox. He is confused. I will check EEG, MRI brain and we will also check his B12. His labs were seen including a normal TSH, chemistry essentially unremarkable with glucose of 115, BUN 19. Urinary tract infection negative. I will follow the neurological course. Thank you for asking us to assist in his care. MD ARIN Westbrook/SABRINA /7:26 AM /11:27 AM
--- NOTE | 2017-10-03 13:31 | EKG ---
Date Performed: 10/02/2017 Time Performed: 17:20:13 PTAGE: 86 years EKG: ATRIAL FIBRILLATION SEPTAL MYOCARDIAL INFARCTION Since the prior tracing, there has been no significant change ABNORMAL ECG PREVIOUS TRACING : 06/23/2013 14.18 DOCTOR: Eliecer Reed Interpretating Date/Time 10/03/2017 13:30:12
--- NOTE | 2017-10-03 15:47 | RADRPT ---
EXAM DATE/TIME: 10/03/2017 14:58 [place] COMPARISON: No previous studies available for comparison. INDICATIONS : Syncope. MEDICAL HISTORY : Hypertension. CVA. SURGICAL HISTORY : None. ENCOUNTER: Initial ACUITY: 1 day PAIN SCORE: 0/10 LOCATION: cranial TECHNIQUE: Multiplanar, multisequence MRI of the brain was performed without contrast. FINDINGS: CEREBRUM: Ventricles, sulci, and cisterns are diffusely prominent indicating diffuse atrophy. Right parietal lo be encephalomalacia indicating old insult. No evidence of midline shift, mass lesion, hemorrhage or a cute infarction. No extraaxial fluid collections are seen. The pituitary gland and suprasellar cist bill are normal in configuration. WHITE MATTER: Prominent symmetric periventricular white matter hyperintensity indicating chronic small vessel white matter ischemic change. POSTERIOR FOSSA: The cerebellum and brainstem are intact. The 4th ventricle is midline. The cerebellopontine angle is unremarkable. The cerebellar tonsils are normal in position. DIFFUSION IMAGING: No focal areas of restricted diffusion are seen. No evidence of acute infarction. EXTRACRANIAL: The visualized portions of the orbits and paranasal sinuses are unremarkable. CONCLUSION: Age-related findings and chronic ischemic findings. No acute intracranial findings. Geremias Reese MD on October 03, 2017 at 15:42 Board Certified Radiologist. This report was verified electronically.
[2017-10-03] MEDS ORDERED: WARFARIN SOD 6 MG TAB PO SCH (16:00)
--- NOTE | 2017-10-03 16:19 | ECHRPT ---
Indication: CVA/TIA CONCLUSIONS Normal left ventricular size. Moderate concentric left ventricular hypertrophy. The left ventricular systolic function is normal with an estimated ejection fraction in the range of 55-60%. The left atrial size is vvhc-[id number] dilated. The right atrial size is mildly dilated. No atrial level shunt is demonstrated by color flow Doppler interrogation. Vvod-le-mdlgipkv mitral valve regurgitation. Aortic valve sclerosis is present. There is trace tricuspid valve regurgitation. The estimated pulmonary arterial pressure is 37.5 mmHg. Trivial pulmonary valve regurgitation. BP: 160 / 82 HR: 89 Rhythm: Sinus MEASUREMENTS (Male / Female) Normal Values Technical Quality:Fair 2D ECHO LV Diastolic Diameter PLAX 4.7 cm 4.2 - 5.9 / 3.9 - 5.3 cm LV Systolic Diameter PLAX 3.5 cm IVS Diastolic Thickness 1.5 cm 0.6 - 1.0 / 0.6 - 0.9 cm LVPW Diastolic Thickness 1.5 cm 0.6 - 1.0 / 0.6 - 0.9 cm LV Relative Wall Thickness 0.6 RV Internal Dim ED PLAX 1.8 cm LVOT Diameter 2.2 cm Aortic Root Diameter 3.0 cm LA Systolic Diameter LX 2.9 cm 3.0 - 4.0 / 2.7 - 3.8 cm M-MODE AV Cusp Separation MM 2.2 cm DOPPLER AV Peak Velocity 121.0 cm/s AV Peak Gradient 5.9 mmHg AV Mean Gradient 3.0 mmHg AV Velocity Time Integral 21.1 cm LVOT Peak Velocity 78.2 cm/s LVOT Peak Gradient 2.4 mmHg LVOT Velocity Time Integral 15.9 cm AV Area Cont Eq vti 2.9 cm AV Area Cont Eq pk 2.5 cm Mitral E Point Velocity 84.9 cm/s Mitral A Point Velocity 116.0 cm/s Mitral E to A Ratio 0.7 LV E' Lateral Velocity 4.0 cm/s Mitral E to LV E' Lateral Ratio 21.2 LV E' Septal Velocity 4.8 cm/s Mitral E to LV E' Septal Ratio 17.8 TR Peak Velocity 262.0 cm/s TR Peak Gradient 27.5 mmHg Right Atrial Pressure 10.0 mmHg Pulmonary Artery Systolic Pressu 37.5 mmHg Right Ventricular Systolic Press 37.5 mmHg PV Peak Velocity 50.4 cm/s PV Peak Gradient 1.0 mmHg FINDINGS LEFT VENTRICLE Normal left ventricular size. Moderate concentric left ventricular hypertrophy. The left ventricular systolic function is normal with an estimated ejection fraction in the range of 55-60%. RIGHT VENTRICLE Normal right ventricular size and systolic function. LEFT ATRIUM The left atrial size is oybq-pw-ojnagyxuwu dilated. RIGHT ATRIUM The right atrial size is mildly dilated. ATRIAL SEPTUM No atrial level shunt is demonstrated by color flow Doppler interrogation. AORTA The aortic root and proximal ascending aorta are normal in size on limited imaging. MITRAL VALVE Dtxc-mm-nlqnlewi mitral valve regurgitation. AORTIC VALVE Aortic valve sclerosis is present. TRICUSPID VALVE There is trace tricuspid valve regurgitation. The estimated pulmonary arterial pressure is 37.5 mmHg. PULMONARY VALVE Trivial pulmonary valve regurgitation. VESSELS The inferior vena cava is normal in size. PERICARDIUM No pericardial effusion. Steve Del Rio MD, FACC (Electronically Signed) Final Date:03 October 2017 16:18
[2017-10-03] MEDS: WARFARIN SOD 6 MG TAB PO SCH (17:06)
[2017-10-03] MEDS: TAMSULOSIN HCL 0.4 MG CAP PO SCH (21:43)
[2017-10-04] VITALS (9 sets, daily range): BP systolic 110–172; BP diastolic 58–96; PULSE 68–83; RESP 18–20; TEMP 98.2–98.7; O2SAT 95–98
[2017-10-04] MEDS: SODIUM CHLOR 0.9% 1000 ML INJ 1,000 ML IV SCH ×3 (03:07→21:55)
--- NOTE | 2017-10-04 05:34 | MG ---
cc: MICHAEL JACOBSEN M.D. Sex: M REQUESTING PHYSICIAN: Dr. Mcdowell DATE OF STUDY: 10/03/2017 DESCRIPTION: An EEG was obtained on this 86-year-old patient being evaluated for possible seizures. The patient is awake and asleep. The EEG is showing low amplitude beta rhythms diffusely. There is some intermixed alpha activity posteriorly, also of low amplitude. There is drowsiness and theta rhythms along with some delta activity is seen bilaterally. Overall the rhythms are symmetrical. The patient is snoring intermittently. Hyperventilation was not performed. Photic stimulation showed some bilateral driving response. INTERPRETATION Normal predominantly asleep EEG. Michael Jacobsen MD [facility] /7:58 PM /5:06 AM
[2017-10-04] MEDS: CAPTOPRIL 50 MG TAB PO SCH ×2 (06:23→18:15)
[2017-10-04] MEDS: ENOXAPARIN SODIUM 80 MG/0.8 ML SYRINGE SQ SCH ×2 (06:23→18:15)
[2017-10-04 08:53] LABS: INTERNATIONAL NORMALIZED RATIO 1.3 RATIO; PROTHROMBIN TIME - PATIENT 12.7 SEC (9.8-11.6)
[2017-10-04] MEDS: SODIUM CHLORIDE 0.9% FLUSH 10 ML FLUSH IV FLUSH SCH ×2 (09:00→21:52)
[2017-10-04] MEDS: POTASSIUM CHLORIDE 10 MEQ CAP PO SCH ×2 (10:03→21:51)
[2017-10-04] MEDS: DILTIAZEM-CD 120 MG CAP ER PO SCH (10:03)
[2017-10-04] MEDS: DOCUSATE SODIUM 50 MG/SENNA 8.6 MG TAB PO SCH ×2 (10:03→21:51)
[2017-10-04] MEDS: LEVOTHYROXINE SODIUM 150 MCG TAB PO SCH (10:03)
[2017-10-04] MEDS: PRAVASTATIN SOD 10 MG TAB PO SCH (10:04)
--- NOTE | 2017-10-04 10:40 | HHI.PR ---
Subjective Remarks Follow-up syncope. Complains of dizziness when standing today. No syncope. Repeat orthostatics negative. Discussed with nursing staff, observe patient all day today if improved dizziness can be discharged home with PT and visiting nurse to continue Lovenox until INR therapeutic. Objective Vitals Vital Signs Date Time Temp Pulse Resp B/P (MAP) Pulse Ox O2 Delivery O2 Flow Rate FiO2 10/04/17 09:51 96 Nasal Cannula 2.00 10/04/17 07:15 98.5 79 18 110/58 (75) 96 10/04/17 00:19 Nasal Cannula 2.00 10/04/17 00:00 98.7 78 18 130/74 (92) 97 10/03/17 20:16 97.9 65 18 127/70 (89) 99 10/03/17 19:48 69 10/03/17 16:01 98.2 78 18 128/60 (82) 98 10/03/17 13:07 98.2 72 18 134/62 (86) 100 I/O 10/03/17 10/03/17 10/03/17 10/04/17 10/04/17 10/04/17 07:00 15:00 23:00 07:00 15:00 23:00 Intake Total 700 ml Output Total 800 ml 900 ml Balance -800 ml -200 ml Intake Oral 700 ml Output Urine Total 800 ml 900 ml # Bowel Movements 1 1 Result Diagram: 10/03/17 0803 10/03/17 0803 Imaging Last Impressions Brain MRI 10/03/17 0000 Signed Impressions: Service Date/Time: Tuesday, October 03, 2017 14:58 - CONCLUSION: Age- related findings and chronic ischemic findings. No acute intracranial findings. Geremias Reese MD Head CT 10/02/17 1541 Signed Impressions: Service Date/Time: Monday, October 02, 2017 16:23 - CONCLUSION: 1. No acute intracranial hemorrhage. 2. Old infarct in the right occipital lobe. 3. Diffuse bilateral cortical atrophy. 4. Otherwise, no other new or significant changes are seen compared to the prior study. Edis Lowry MD Chest X-Ray 10/02/17 2822 Signed Impressions: Service Date/Time: Monday, October 02, 2017 15:51 - CONCLUSION: No acute disease. Edis Lowry MD Objective Remarks GENERAL: This is a very pleasant 86-year-old male well- nourished, well-developed patient, in no apparent distress. SKIN: No rashes, ecchymoses or lesions. Cool and dry. CARDIOVASCULAR: Irregularly irregular RESPIRATORY: Clear to auscultation. Breath sounds equal bilaterally. No wheezes , rales, or rhonchi. GASTROINTESTINAL: Abdomen soft, non-tender, nondistended. No guarding. MUSCULOSKELETAL: Extremities without clubbing, cyanosis, or edema. No joint tenderness, effusion, or edema noted. No calf tenderness. Negative Homans sign bilaterally. NEUROLOGICAL: Awake and alert. Cranial nerves II through XII intact. Motor and sensory grossly at baseline, slight weakness right arm and right leg. Normal speech. Procedures none A/P Problem List: (1) Syncope ICD Code: R55 - Syncope and collapse Status: Acute Assessment and Plan The patient is a very pleasant 86-year-old male with past medical history of CVA with right-sided weakness, brain aneurysm, DVT, hypertension who came for evaluation of episode of syncope Syncope with history of CVA with right-sided weakness, A. fib and brain aneurysm. Likely vasovagal. Stroke workup negative so far. Complained of dizziness today but not orthostatic. Follow-up with physical therapy. Unremarkable 2-D echo, brain MRI and continue telemetry. CVA with right-sided weakness with A. fib. Continue anticoagulation with Coumadin keep INR between 2 and 3 bridge with Lovenox History of brain aneurysm. Stable History of DVT. Stable on anticoagulation Hypertension. Continue outpatient medications as appropriate. DVT prophylaxis SCD/teds/Lovenox and Coumadin Discharge Planning Discharge patient to home with PT and visiting nurse Condition on discharge: Improved Regular Diet as tolerated Ad Jen activity no driving Rx written: Lovenox Follow-up with primary care physician Problem Qualifiers (1) Syncope: Qualified Codes: R55 - Syncope and collapse Chad Mendez MD Oct 04, 2017 10:40
--- NOTE | 2017-10-04 10:54 | HHI.FF ---
Face to Face Verification Diagnosis: (1) Impaired mobility and ADLs (2) Dizziness (3) Gait instability (4) Left leg DVT (5) Anticoagulated on Coumadin Physical Therapy Order: Evaluate and Treat, Improve ambulation, Strength and gait training Occupational Therapy Order: Evaluate and Treat, Improve ADL Home Health Nursing Order: Medical education Signs/symptoms of disease process Medication education-adverse effect (assist with lovenox injections) Nursing assessment with vital signs I have seen patient Alexus Dunlap on 10/04/17. My clinical findings support the need for the requested home health care services because: Ltd mobility - disease progression Deconditioned w/ increased weakness Limited ability to care for self High risk of falls I certify that my clinical findings support that this patient is homebound because: Impaired cognitive ability/safety Unsteady gait/balance Unsafe to leave home unassisted Unable to use public transportation Colleen Smiley PA-C Oct 04, 2017 10:54
[2017-10-04] MEDS ORDERED: ENOX80P SQ (10:56)
[2017-10-04] MEDS: WARFARIN SOD 6 MG TAB PO SCH (18:15)
[2017-10-04] MEDS: TAMSULOSIN HCL 0.4 MG CAP PO SCH (21:51)
[2017-10-05] VITALS: BP 154/84; PULSE 84; RESP 18; TEMP 98.5; O2SAT 95
[2017-10-05 04:00] VITALS: BP 138/74; PULSE 78; RESP 18; TEMP 97.8; O2SAT 98
[2017-10-05 05:21] LABS: INTERNATIONAL NORMALIZED RATIO 1.4 RATIO; PROTHROMBIN TIME - PATIENT 14.6 SEC (9.8-11.6)
[2017-10-05] MEDS: ENOXAPARIN SODIUM 80 MG/0.8 ML SYRINGE SQ SCH (06:10)
[2017-10-05] MEDS: CAPTOPRIL 50 MG TAB PO SCH (06:10)
[2017-10-05 06:33] VITALS: PULSE 69
[2017-10-05 08:00] VITALS: BP_SYST 116; BP_SYST 119; BP_SYST 131; BP_DIAS 64; BP_DIAS 66; BP_DIAS 67; PULSE 71; RESP 20; TEMP 97.4; O2SAT 100
[2017-10-05] MEDS ORDERED: LEVOTHYROXINE SODIUM 150 MCG TAB PO SCH (08:15)
[2017-10-05] MEDS: SODIUM CHLORIDE 0.9% FLUSH 10 ML FLUSH IV FLUSH SCH (09:00)
[2017-10-05] MEDS: SODIUM CHLOR 0.9% 1000 ML INJ 1,000 ML IV SCH (09:50)
[2017-10-05] MEDS: DOCUSATE SODIUM 50 MG/SENNA 8.6 MG TAB PO SCH (10:00)
[2017-10-05] MEDS: POTASSIUM CHLORIDE 10 MEQ CAP PO SCH (10:01)
[2017-10-05] MEDS: DILTIAZEM-CD 120 MG CAP ER PO SCH (10:01)
[2017-10-05 10:39] LABS: RPR SCREEN FOR REFLEX NON-REACTIVE (NON-REACTVE)
--- NOTE | 2017-10-05 16:15 | HHI.DS ---
Discharge Summary Admission Date Oct 02, 2017 at 5:46 pm Discharge Date: Oct 05, 2017 Admitting Diagnosis acute syncope (1) Syncope ICD Code: R55 - Syncope and collapse Status: Acute Procedures EEG INTERPRETATION Normal predominantly asleep EEG. Brief History - From Admission The patient is a very pleasant 86-year-old male with past medical history of CVA with right-sided weakness, brain aneurysm, DVT, hypertension. The patient came for evaluation of episode of syncope witnessed today by his family. The patient was sitting down in front of his grandson at the table when he suddenly slumped over and was unresponsive for 10-15 minutes. He had his eyes open and staring. Patient doesn't have a recollection of what happened and by the time he came to the emergency room his baseline. Her family the patient has slurred speech afterwards. The patient denies any fever, chest pain, shortness of breath, nausea or vomiting. No abdominal pain. No new focal deficit or numbness. No change in vision. He has right-sided weakness at baseline. The patient as family says he is not taking anymore Coumadin however he was switched to paradox and currently he is not sure what medication he is taking for anticoagulation however he is sure he is not taking Coumadin anymore. CBC/BMP: 10/03/17 0803 10/03/17 0803 Significant Findings Laboratory Tests Test 10/02/17 16:19 10/02/17 17:25 10/03/17 08:03 10/04/17 07:40 Monocytes (%) (Auto) 10.1 % (0.0-8.0) 11.1 % (0.0-8.0) Lymphocytes # (Auto) 0.9 TH/MM3 (1.0-4.8) Prothrombin Time 12.0 SEC (9.8-11.6) 12.2 SEC (9.8-11.6) 12.7 SEC (9.8-11.6) Blood Urea Nitrogen 19 MG/DL (7-18) Random Glucose 115 MG/DL (74-106) Estimat Glomerular Filtration Rate 75 ML/MIN (>89) Urine Protein 30 mg/dL (NEG-TRACE) Urine Mucus FEW /lpf (OCC) Red Blood Count 4.11 MIL/MM3 (4.50-5.90) Hemoglobin 12.9 GM/DL (13.0-17.0) Hematocrit 37.9 % (39.0-51.0) Chloride Level 109 MEQ/L (98-107) Test 10/05/17 04:31 Prothrombin Time 14.6 SEC (9.8-11.6) Imaging Last Impressions Brain MRI 10/03/17 0000 Signed Impressions: Service Date/Time: Tuesday, October 03, 2017 14:58 - CONCLUSION: Age- related findings and chronic ischemic findings. No acute intracranial findings. Geremias Reese MD Head CT 10/02/17 1544 Signed Impressions: Service Date/Time: Monday, October 02, 2017 16:23 - CONCLUSION: 1. No acute intracranial hemorrhage. 2. Old infarct in the right occipital lobe. 3. Diffuse bilateral cortical atrophy. 4. Otherwise, no other new or significant changes are seen compared to the prior study. Edis Lowry MD Chest X-Ray 10/02/17 1544 Signed Impressions: Service Date/Time: Monday, October 02, 2017 15:51 - CONCLUSION: No acute disease. Edis Lowry MD PE at Discharge GENERAL: This is a very pleasant 86-year-old male well- nourished, well-developed patient, in no apparent distress. SKIN: No rashes, ecchymoses or lesions. Cool and dry. CARDIOVASCULAR: Irregularly irregular RESPIRATORY: Clear to auscultation. Breath sounds equal bilaterally. No wheezes , rales, or rhonchi. GASTROINTESTINAL: Abdomen soft, non-tender, nondistended. No guarding. MUSCULOSKELETAL: Extremities without clubbing, cyanosis, or edema. No joint tenderness, effusion, or edema noted. No calf tenderness. Negative Homans sign bilaterally. NEUROLOGICAL: Awake and alert. Cranial nerves II through XII intact. Motor and sensory grossly at baseline, slight weakness right arm and right leg. Normal speech. Pt update on day of discharge Patient is currently doing well. Denies any chest pain, shortness of breath, fever or chills. He wants to go home. Hospital Course The patient is a very pleasant 86-year-old male with past medical history of CVA with right-sided weakness, brain aneurysm, DVT, hypertension who came for evaluation of episode of syncope. Urinalysis was negative for UTI. 2-D echo, brain MRI showed no acute findings. 2-D echo shows ejection fraction 55-60%. EEG was unremarkable. Patient was continued on Coumadin and Lovenox was used to bridge to Coumadin due to subtherapeutic INR. However, on discharge we discontinued Lovenox since bridging is not required in atrial fibrillation anticoagulation. The daily risk for acute stroke from atrial fibrillation is small whereas bridging may expose patient to higher risk of bleeding. Home health was arranged. Pt Condition on Discharge: Good Discharge Disposition: Disch w/ Home Health Serv Discharge Time: <= 30 minutes Discharge Instructions DIET: Follow Instructions for: Heart Healthy Diet Activities you can perform: Regular-No Restrictions Follow up Referrals: PCP Follow-up - 2-3 Days with Chelsie Newell MD Continued Medications: Acetaminophen (Tylenol) 325 Mg Tab 650 MG PO Q6H PRN for PAIN 1 TO 10 AND/OR AGITATION, TAB 0 Refills Baclofen (Baclofen) 10 Mg Tab 10 MG PO Q8HR PRN for BACK PAIN, TAB 0 Refills Captopril (Captopril) 50 Mg Tab 50 MG PO BIDAC, #60 TAB 0 Refills Take 1 hour before meals. Diltiazem CD 24 HR (Cardizem CD 24 HR) 120 Mg Caper 120 MG PO DAILY, #30 CAP 0 Refills Levothyroxine (Levothyroxine) 150 Mcg Tab 150 MCG PO DAILY for Thyroid, #30 TAB 0 Refills Multiple Vitamins W/ Minerals (Centrum Silver) 400 Mcg-250 Mcg Chw Polyvinyl Alcohol-Povidone Opth Drops (Refresh Opth Drops) 1.4-0.6% Drops 1-2 DROP EACH EYE PRN PRN for DRY EYE, #1 BOTTLE 0 Refills Potassium Chloride ER (Potassium Chloride ER) 10 Meq Cap 10 MEQ PO BID for Electrolyte Replacement, #60 CAP 0 Refills Pravastatin (Pravastatin) 10 Mg Tab 10 MG PO DAILY for Cholesterol Management, #30 TAB 0 Refills Tamsulosin (Tamsulosin) 0.4 Mg Cap 0.4 MG PO HS for Manage Prostate Problems, #30 CAP 0 Refills Warfarin (Warfarin) 6 Mg Tab 6 MG PO DAILY for Blood Clot Prevention, #30 TAB 0 Refills Discontinued Medications: Acetaminophen (Tylenol) 325 Mg Tab 650 MG PO Q4H PRN for PAIN SCALE 1 TO 10, TAB 0 Refills Diltiazem ER 12 HR (Diltiazem ER 12 HR) 120 Mg Caper 120 MG PO BID, #60 CAP 0 Refills Lisinopril (Lisinopril) 20 Mg Tab 20 MG PO DAILY, #30 TAB 0 Refills Vicente Barlow DO Oct 05, 2017 4:15 pm
[2017-10-05] MEDS ORDERED: PRAVASTATIN SOD 10 MG TAB PO SCH (21:00)
== END 2017-10-05 11:38 | disposition home or self-care (01) ==
LOC: NEPE 15:21 → NEDA 17:46 → NEPGCP 19:19
PROVIDERS: ADMIT Hospitalist; ATTEND Hospitalist
DX: R55 Syncope and collapse (principal); I48.91 Unspecified atrial fibrillation; I67.1 Cerebral aneurysm, nonruptured; I69.351 Hemiplegia and hemiparesis following cerebral infarction affecting right dominant side; I10 Essential (primary) hypertension; I95.9 Hypotension, unspecified; E07.9 Disorder of thyroid, unspecified; E78.00 Pure hypercholesterolemia, unspecified; R94.31 Abnormal electrocardiogram [ECG] [EKG]; Z79.01 Long term (current) use of anticoagulants; Z86.718 Personal history of other venous thrombosis and embolism; Z87.891 Personal history of nicotine dependence
CPT/HCPCS: 70450; 70551; 71045; 80048; 80053; 81001; 82550; 82552; 82607; 82948; 83735; 84443; 84484; 85025; 85610; 85730; 86592; 93005; 93306; 95819; 96360; 96361; 96372; 97162; 99285; G0378; G8987; G8988; J1650; J7030; J7040